=== PATIENT | male | born 1945 | race Caucasian/White ===

== ENCOUNTER 2016-06-25 22:49 | Observation (INO) | payer OTHER, BC ==
[~2016-06-25] VITALS: Ht 188 cm; Wt 127.3 kg
--- NOTE | 2016-06-26 02:41 | ED ORDER SUMMARY ---
..... Patient: CA FITZGERALD OrderSheet [facility] VisitID: [id number] [address] [place] [address] 70y, M Registration Date/Time: 06/25/2016 ORDER SHEET Weight: 122.4 kg (stated) Allergies: Keflex GENERAL ORDERS: Prune Washer (Continuous) (DM with shoulder and neck pain) (23:06 06/25/2016 Anil R.N. verbal order read back to Didier CONNORS) (23:07 JRomanelli R.N.) UA-Culture if indicated Urgent (23:07 06/25/2016 Anil R.N. verbal order read back to Didier CONNORS) (Ack 23:10 LMuller) (0:19 RCollier R.N.) EKG - ER Stat (23:06/25/2016 Anil R.N. verbal order read back to Didier CONNORS) (Ack 23:10 LMuller) (23:10 LMuller) Oxygen (2 L/min) (NC) (23:07 06/25/2016 Anil R.N. verbal order read back to Didier CONNORS) (23:07 omanelli R.N.) Chest 1V Urgent (00:46 06/26/2016 Didier CONNORS) (Ack 0:49 LMuller) (1:14 Katy) CBC w Diff Urgent (00:47 06/26/2016 Didier CONNORS) (Ack 0:49 LMuller) (2:50 RCollier R.N.) CMP Urgent (00:47 06/26/2016 Didier CONNORS) (Ack 0:49 LMuller) (2:50 RCollier R.N.) UA-Culture if indicated Urgent (00:47 06/26/2016 Didier CONNORS) (Ack 0:49 LMuller) (2:50 RCollier R.N.) Amylase Urgent (00:47 06/26/2016 Didier CONNORS) (Ack 0:49 LMuller) (2:50 RCollier R.N.) Lipase Urgent (00:47 06/26/2016 Didier CONNORS) (Ack 0:49 LMuller) (2:50 RCollier R.N.) CPK Urgent (00:47 06/26/2016 Didier CONNORS) (Ack 0:49 LMuller) (2:50 RCollier R.N.) Troponin-I Urgent (00:47 06/26/2016 Didier CONNORS) (Ack 0:49 LMuller) (2:51 RCollier R.N.) BNP Urgent (00:47 06/26/2016 Didier CONNORS) (Ack 0:49 LMuller) (2:51 RCollier R.N.) Pulse oximeter (00:47 06/26/2016 Didier CONNORS) (0:48 RCollier R.N.) Abdomen 1V Upright Urgent (03:14 06/26/2016 Mandoer verbal order read back to Katharine Bui) (Ack 3:17 LMuller) (3:36 [facility]) MEDICATION ORDERS: Phenergan IV 25 mg (HIGH ALERT MEDICATION, NOW) (01:03 06/26/2016 Didier CONNORS) (Ack 1:04 RCollier R.N.) (1:18 IZABELollier R.N.) Aspirin PO 325 mg (NOW) (02:36 06/26/2016 Didier CONNORS) (Ack 2:40 RCollier R.N.) (2:51 RCollier R.N.) IV FLUIDS: IV Saline Lock (23:07 06/25/2016 Anil R.NMarianela verbal order read back to Didier CONNORS) (Ack 23:26 IZABELollier R.N.) (23:33 Anil R.N.) Zofran IV 4 mg (NOW) (23:37 06/25/2016 Anil R.N. verbal order read back to Didier CONNORS) (23:38 Anil R.N.) IV NS : initial bolus 500 mL (1000 mL/hr), then 125 mL/hr for 4h (NOW); Urgent (01:03 06/26/2016 Didier CONNORS) (Ack 1:04 RCollier R.N.) (1:17 RCollier R.N.) ORDER SHEET NOTES: [Electronically signed by Florencia Aguilar R.N. (04:43 06/26/2016)] [Electronically signed by Carl Carrero MD (08:16 06/26/2016)] [Electronically locked/signed by Florencia Aguilar R.N. (04:43 06/26/2016)]
--- NOTE | 2016-06-26 02:41 | ED CLINICAL REPORT ---
Clinical Report - Physicians/Mid Levels [facility] [address] [place] [address] 06/25/2016 22:50 Patient: CA FITZGERALD Time Seen: 23:26. Arrived- By private vehicle. Historian- patient. HISTORY OF PRESENT ILLNESS Chief Complaint: CHILLS and SWEATS. This started at about 8:30 PM. No muscle aches, loss of appetite or fatigue. He has had aching central chest pain. REVIEW OF SYSTEMS The patient has had a subjective fever, chills, chest pain, nausea and neck pain. He has experienced sweats. No abdominal pain, black stools, bloody stools, constipation or diarrhea. He has had moderate vomiting. The vomiting has occurred several times. No coffee-grounds emesis or frankly bloody emesis. All systems otherwise negative, except as recorded above. PAST HISTORY PCP - Aline. Problems: Cellulitis. Abscess. Crohn's Disease. Acid Reflux. Diabetes Mellitus. Hypertension. Hypertension. Additional Surgeries: Bowel Resection. Bowel Surgery. Cholecystectomy. Hernia Repair. Medications: ASA 81 mg, daily. Z85-Yjctev Oral. Boniva Oral. Calcium Ascorbate Oral. Co Q-10 Oral. Colostyrime. Glimepiride Oral. Hydrochlorothiazide Oral. insulin Levomir 24 units BID. Lisinopril Oral. MetFORMIN HCl Oral. Metoprolol 50 mg, 2x a day. Omeprazole Oral. Simvastatin Oral. Allergies: Keflex. Definite Moderate(hives, itching). SOCIAL HISTORY Never smoker. Occasional alcohol use. No drug use. FAMILY HISTORY Denies family medical history. ADDITIONAL NOTES The nursing notes have been reviewed. PHYSICAL EXAM Vital Signs: 06/25/2016 23:08 BP: 205/82. HR: 62. RR: 20. O2 saturation: 98%. Temp: 99.7 F. Pain level now: 2/10. Have been reviewed. Appearance: Alert. Eyes: Pupils equal, round and reactive to light. ENT: Pharynx normal. Neck: Normal inspection. Neck supple. CVS: Normal heart rate and rhythm. Heart sounds normal. Respiratory: No respiratory distress. Breath sounds normal. Abdomen: Soft and nontender. Bowel sounds normal. No organomegaly. No mass. Obese. Back: Normal inspection. Skin: Skin warm and dry. Normal skin color. Normal skin turgor. Extremities: Extremities exhibit normal ROM. No calf tenderness. Extremities nontender. LABS, X-RAYS, AND EKG EKG: Rate: 65. First-degree atrioventricular block. EKG unchanged when compared with prior EKG. (10 Feb 2010). The study has been independently viewed by me. Chest X-ray: No acute disease. Technique: poor inspiration. The X-rays were independently viewed by me. Laboratory Tests: UA-Culture if indicated: (LAITH: 06/26/2016 00:17) ( MsgRcvd 06/26/2016 00:59) Final results Test Result Flag Units (Reference) URINE COLOR YELLOW URINE APPEARANCE CLEAR URINE GLUCOSE TRACE (NEGATIVE) URINE BILIRUBIN NEGATIVE (NEGATIVE) URINE KETONE NEGATIVE (NEGATIVE) URINE SPECIFIC GRAVITY >= 1.030 (1.010-1.030) URINE PH 5.5 (5.0-8.0) URINE PROTEIN 1+ (NEGATIVE) URINE UROBILINOGEN 0.2 EU/dL (0.2-1.0) URINE NITRITE NEGATIVE (NEGATIVE) URINE BLOOD 1+ (NEGATIVE) URINE LEUK ESTERASE NEGATIVE (NEGATIVE) URINE RBC 0-1 rbc/hpf (0-1) URINE WBC 0-1 wbc/hpf (0-1) URINE EPITHELIAL CELLS 0-1 EPI/hpf (0-5) URINE BACTERIA NONE SEEN (NONE SEEN) URINE COMMENT CULT NOT INDICATED URINE CULTURES ARE SET-UP BASED ON THE FOLLOWING CRITERIA:POSITIVE NITRITEPOSITIVE LEUKOCYTE ESTERASEGREATER THAN 10 WHITE BLOOD CELLSMODERATE (2+) OR GREATER BACTERIA CBC w Diff: (LAITH: 06/26/2016 00:01) ( MsgRcvd 06/26/2016 02:08) Final results Test Result Flag Units (Reference) WHITE BLOOD COUNT 2.7 L K/uL (4.5-11.5) RED BLOOD COUNT 3.69 L M/uL (4.50-5.90) HEMOGLOBIN 11.0 L gm/dL (13.5-17.5) HEMATOCRIT 32.5 L % (41.0-53.0) MEAN CELL VOLUME 88 fL (80-100) MEAN CORPUSCULAR HGB 30 pg (26-34) MEAN CORPUSCULAR HGB CONC 34 g/dL (31-37) RED CELL DISTRIBUTION WIDTH 13.2 % (11.6-14.8) PLATELET COUNT 126 L K/uL (150-400) NEUTROPHIL % 88.8 H % (50-75) LYMPH % 9.6 L % (25-40) MONO % 0.3 L % (3-14) EOSINOPHIL % 1.0 % (0-4) BASOPHIL % 0.3 % (0-2) BNP: (LAITH: 06/26/2016 00:01) ( MsgRcvd 06/26/2016 02:24) Final results Test Result Flag Units (Reference) B-TYPE NATRIURETIC PEPTIDE 67.3 pg/ml (5-100) CMP: (LAITH: 06/26/2016 00:01) ( MsgRcvd 06/26/2016 02:19) Final results Test Result Flag Units (Reference) GLUCOSE 175 H mg/dL (70-110) BUN 22 H mg/dL (7-18) CREATININE 1.3 mg/dL (0.6-1.3) Estimated GFR 58.00 mL/min Estimated GFR- >60 mL/min Note: Persistent reduction over 3 months in eGFR<60 mL/min/1.73 m2 defines CKD. Patients with eGFR values>=60 mL/min/1.73 m2 may also have CKD if evidence ofpersistent proteinuria. Additional information may be foundat www.kidney.org. SODIUM 145 mmol/L (136-145) POTASSIUM 4.1 mmol/L (3.5-5.1) CHLORIDE 106 mmol/L (98-107) CARBON DIOXIDE 29 mmol/L (21-32) CALCIUM 8.7 mg/dL (8.5-10.1) TOTAL PROTEIN 6.8 g/dL (6.4-8.2) ALBUMIN 3.4 g/dL (3.3-5.0) BILIRUBIN, TOTAL 0.3 mg/dL (0.0-1.0) ALKALINE PHOSPHATASE 70 U/L (46-116) AST (SGOT) 14 L U/L (15-37) ALT (SGPT) 25 U/L (12-78) LIPASE 106 U/L (73-393) AMYLASE 33 U/L (25-115) CPK 62 U/L (24-260) TROPONIN I <0.05 L ng/mL (0.00-1.5) TROPONIN REFERENCE RANGE:<0.1 NEGATIVE0.1-1.5 INDETERMINANT>1.5 POSITIVE . PROGRESS AND PROCEDURES Course of Care: Patient is stable. Discussed case with hospitalist, (Jeevan). Reviewed test results and need for additional work-up. Agreed upon treatment plan, need for patient follow-up and decision to place in observation. Patient/family counseled. Old medical records reviewed. Disposition: Admitted. Observation. CLINICAL IMPRESSION Chest pain. Abnormal tests: (pancytopenia). (Electronically signed by Carl Carrero MD 06/26/2016 8:16)
--- NOTE | 2016-06-26 02:41 | ED ORDER SUMMARY ---
..... Patient: CA FITZGERALD OrderSheet [facility] VisitID: [id number] [address] [place] [address] 70y, M Registration Date/Time: 06/25/2016 ORDER SHEET Weight: 122.4 kg (stated) Allergies: Keflex GENERAL ORDERS: Behavior Management Specialist (Continuous) (DM with shoulder and neck pain) (23:06 06/25/2016 Anil R.N. verbal order read back to Didier CONNORS) (23:07 JRomanelli R.N.) UA-Culture if indicated Urgent (23:07 06/25/2016 Anil R.N. verbal order read back to Didier CONNORS) (Ack 23:10 LMuller) (0:19 RCollier R.N.) EKG - ER Stat (23:06/25/2016 Anil R.N. verbal order read back to Didier CONNORS) (Ack 23:10 LMuller) (23:10 LMuller) Oxygen (2 L/min) (NC) (23:07 06/25/2016 Anil R.N. verbal order read back to Didier CONNORS) (23:07 omanelli R.N.) Chest 1V Urgent (00:46 06/26/2016 Didier CONNORS) (Ack 0:49 LMuller) (1:14 Kayt) CBC w Diff Urgent (00:47 06/26/2016 Didier CONNORS) (Ack 0:49 LMuller) (2:50 RCollier R.N.) CMP Urgent (00:47 06/26/2016 Didier CONNORS) (Ack 0:49 LMuller) (2:50 RCollier R.N.) UA-Culture if indicated Urgent (00:47 06/26/2016 Didier CONNORS) (Ack 0:49 LMuller) (2:50 RCollier R.N.) Amylase Urgent (00:47 06/26/2016 Didier CONNORS) (Ack 0:49 LMuller) (2:50 RCollier R.N.) Lipase Urgent (00:47 06/26/2016 Didier CONNORS) (Ack 0:49 LMuller) (2:50 RCollier R.N.) CPK Urgent (00:47 06/26/2016 Didier CONNORS) (Ack 0:49 LMuller) (2:50 RCollier R.N.) Troponin-I Urgent (00:47 06/26/2016 Didier CONNORS) (Ack 0:49 LMuller) (2:51 RCollier R.N.) BNP Urgent (00:47 06/26/2016 Didier CONNORS) (Ack 0:49 LMuller) (2:51 RCollier R.N.) Pulse oximeter (00:47 06/26/2016 Didier CONNORS) (0:48 RCollier R.N.) Abdomen 1V Upright Urgent (03:14 06/26/2016 Mandoer verbal order read back to Katharine Bui) (Ack 3:17 LMuller) (3:36 [facility]) MEDICATION ORDERS: Phenergan IV 25 mg (HIGH ALERT MEDICATION, NOW) (01:03 06/26/2016 Didier CONNORS) (Ack 1:04 RCollier R.N.) (1:18 IZABELollier R.N.) Aspirin PO 325 mg (NOW) (02:36 06/26/2016 Didier CONNORS) (Ack 2:40 RCollier R.N.) (2:51 RCollier R.N.) IV FLUIDS: IV Saline Lock (23:07 06/25/2016 Anil R.NMarianela verbal order read back to Didier CONNORS) (Ack 23:26 IZABELollier R.N.) (23:33 Anil R.N.) Zofran IV 4 mg (NOW) (23:37 06/25/2016 Anil R.N. verbal order read back to Didier CONNORS) (23:38 Anil R.N.) IV NS : initial bolus 500 mL (1000 mL/hr), then 125 mL/hr for 4h (NOW); Urgent (01:03 06/26/2016 Didier CONNORS) (Ack 1:04 RCollier R.N.) (1:17 RCollier R.N.) ORDER SHEET NOTES: [Electronically signed by Florencia Aguilar R.N. (04:43 06/26/2016)] [Electronically signed by Carl Carrero MD (08:16 06/26/2016)] [Electronically locked/signed by Florencia Aguilar R.N. (04:43 06/26/2016)]
--- NOTE | 2016-06-26 02:41 | ED NURSING NOTES ---
Clinical Report - Nurses [facility] [address] [place] [address] 06/25/2016 22:50 Patient: CA FITZGERALD TRIAGE Triage time 23:00 Jun 25 2016. Acuity: LEVEL 3. Chief Complaint: CHILLS (Pain in jaw and across his chest, and shakes). Alert. MIGUEL COMA SCORE: Sabine Coma Scale: 15- eyes open spontaneously (4); best verbal response- oriented x 4 (5); best motor response- obeys commands (6). --23:18 Alok Vang R.N. 23:08 06/25/16. BP: 205/82. HR: 62. RR: 20. O2 saturation: 98% on room air. Temp: 99.7 F. Pain level now: 2/10. Additional comments: across the chest and in the jaw. --23:18 Alok Vang R.N. Weight: 122.4 kg stated. Height/Length: 74 inches Per Patient. BMI: 34.7. --23:10 Alok Vang R.N. Medications ASA 81 mg, daily. N50-Qcaxzm Oral. Boniva Oral. Calcium Ascorbate Oral. Co Q-10 Oral. Colostyrime. Glimepiride Oral. Hydrochlorothiazide Oral. insulin Levomir 24 units BID. Lisinopril Oral. MetFORMIN HCl Oral. Metoprolol 50 mg, 2x a day. Omeprazole Oral. Simvastatin Oral. --23:17 Alok Vang R.N. Allergies Keflex. Definite Moderate(hives, itching) --23:17 Alok Vang R.N. History Arrived by private vehicle. Historian: patient. Accompanied by spouse. Primary physician (Aline). ( Chills associated with nausea, aching jaw and shoulders and an aching neck. Bryce fine all day and then started to get the shakes and his pain worsened.). Onset. (about 1 1/2 hours ago). ( Pain in shoulder joints and jaw). Treatment AUCTIONEER ART: None. PAST MEDICAL HX: Immunizations: up-to-date. SOCIAL HX: Never smoker. No alcohol use or drug use. No infectious disease exposure. ABUSE ASSESSMENT: No report of abuse. FALL RISK ASSESSMENT: Fall risk assessment completed. No fall risk identified. NUTRITIONAL RISK ASSESSMENT: The nutritional risk assessment revealed no deficiencies. FUNCTIONAL ASSESSMENT: Functional assessment: no impairments noted. LEARNING NEEDS ASSESSMENT: The learning needs assessment revealed no barriers. SKIN INTEGRITY ASSESSMENT: Skin integrity risk assessment completed. No skin integrity risk identified. --23:18 Alok Vang R.N. PROBLEMS: Cellulitis. Abscess. Crohn's Disease. Acid Reflux. Diabetes Mellitus. Hypertension. --23:14 Alok Vang R.N. ADDITIONAL SURGERIES: Bowel Surgery. Cholecystectomy. Hernia Repair. --23:14 Alok Vang R.N. Bowel Resection. --23:18 Alok Vang R.N. Interventions ID band on patient. To treatment room. --23:18 Alok Vang R.N. PHYSICAL ASSESSMENT To room via wheelchair. GENERAL / NEURO / PSYCH: Alert. Oriented X 4. HEENT: No facial asymmetry noted. Mucous membranes are pink. RESPIRATORY: Respirations not labored. CVS: Normal sinus rhythm noted. Capillary refill less than 2 seconds. Pulses within normal limits. GI / : Abdominal tenderness in the upper abdomen, right upper quadrant, epigastric area and left upper quadrant. SKIN: Skin intact. Skin is warm and dry. Normal skin turgor. --23:19 Alok Vang R.N. NURSING PROGRESS NOTES Oxygen administered by nasal cannula at 2 liters. air sampling and monitoring, pulse oximeter, end tidal CO2 monitor and NIBP monitor placed on patient; telemetry monitor- Lead II and V1; monitor alarms on. Patient gowned. Reassurance given. Patient ready for evaluation- chart flagged and ED physician notified. --23:19 Alok Vang R.N. 23:18 06/25/2016 Site #1 started via IV in the left antecubital space with an 20g angiocath, with aseptic technique and good blood return; one attempt. Blood drawn: rainbow set. Labeled in the presence of the patient and sent to the lab. Saline lock flushed with 10 mL saline. --23:33 Alok Vang R.N. 23:28 06/25/2016 Zofran (Ondansetron HCl) IVP 4 mg given over 2 minute(s) via site #1. Allergies verified and confirmed 5 rights. IV patency established. IV site checked: no pain, redness, or swelling. IV flushed thoroughly pre- and post-medication administration. IVP given by RN. --23:38 Alok Vang R.N. EKG time: (7874). EKG was performed by a tech and shown to the ED physician. --00:03 Zeina Villalba ER Tech1 ( pt repositioned in bed.). --00:18 Florencia Aguilar R.N. Patient ID band checked for patient name and birthdate: patient confirmed urine collected with return of yellow-colored clear urine; sample sent to lab. Specimen labeled in the presence of the patient. --00:18 Florencia Aguilar R.N. ( pt still vomiting after Zofran. at bedside, assisting with pt clean up.). --00:21 Florencia Aguilar R.N. GI / : The patient reports nausea. SKIN: Slightly pallid. --00:21 Florencia Aguilar R.N. 00:25 06/26/16. BP: 200/77. HR: 87. RR: 16. O2 saturation: 97% on room air. Bennett-Saucedo pain scale: 4/10. --00:26 Florencia Aguilar R.N. 01:15 06/26/2016 Started bag #1 1000 mL IV Fluids IV NS (Saline); bolus of 500 mL over 30 minute(s) then at 125 mL/hr via site #1 via IV pump. Allergies verified and confirmed 5 rights. IV patency established. IV site checked: no pain, redness, or swelling. IV flushed thoroughly pre- and post-medication administration. --01:17 Florencia Aguilar R.N. 01:16 06/26/2016 PHENERGAN (Promethazine HCl) IVP 25 mg given over 90 second(s) via site #1. Allergies verified and confirmed 5 rights. IV patency established. IV site checked: no pain, redness, or swelling. IV flushed thoroughly pre- and post-medication administration. IVP given by RN. --01:18 Florencia Aguilar R.N. 01:18 06/26/16. BP: 154/73. HR: 93. RR: 16. O2 saturation: 93% on nasal cannula at 2 liters/minute. --01:19 Florencia Aguilar R.N. 02:50 06/26/2016 Aspirin PO Tablets 325 mg given. Allergies verified and confirmed 5 rights. --02:51 Florencia Aguilar R.N. ( assisted pt to reposition in bed.). --02:52 Florencia Aguilar R.N. ( Dr Chew at bedside.). --02:52 Florencia Aguilar R.N. ( 2 person assist to reposition pt in bed.). --03:11 Florencia Aguilar R.N. 03:11 06/26/16. BP: 135/72. HR: 85. RR: 15. O2 saturation: 94% on nasal cannula at 2 liters/minute. Temp: 99.3 F (oral). --03:13 Florencia Aguilar R.N. 04:25 06/26/2016 Site #[address] upon admission. Flushed with 10 mL saline; flushes easily. --04:43 Florencia Aguilar R.N. 04:25 06/26/2016 IV Fluids IV NS Discontinued: bag #1 STOPPED. Total amount infused: 700 mL. IV patency established. IV site checked: no pain, redness, or swelling. IV flushed thoroughly. --04:42 Florencia Aguilar R.N. DISPOSITION / DISCHARGE Report was given to a nurse via a phone call. Report included patient's care, treatment, medications, reviewed medication reconcilliation, and condition (including any recent changes or anticipated changes). All questions were answered. Report was acknowledged and care was transferred. --04:19 Florencia Aguilar R.N. 04:19 06/26/16. BP: 99/58. HR: 78. RR: 15. O2 saturation: 94% on nasal cannula at 2 liters/minute. Temp: 99.5 F (oral). Bennett-Saucedo pain scale: 10. --04:23 Florencia Aguilar R.N. Patient's personal items include, clothing ( took home car keys from pocket of jestaci); items were placed in belongings bag and transported with the patient. Collection of belongings was witnessed by 1 nurse. --04:24 Florencia Aguilar R.N. Transported via stretcher by nurse with IV. --04:43 Florencia Aguilar R.N. Locked/Released at 06/26/2016 4:43 by Florencia Aguilar R.N.
--- NOTE | 2016-06-26 02:41 | ED NURSING NOTES ---
Clinical Report - Nurses [facility] [address] [place] [address] 06/25/2016 22:50 Patient: CA FITZGERALD TRIAGE Triage time 23:00 Jun 25 2016. Acuity: LEVEL 3. Chief Complaint: CHILLS (Pain in jaw and across his chest, and shakes). Alert. MIGUEL COMA SCORE: [place] Coma Scale: 15- eyes open spontaneously (4); best verbal response- oriented x 4 (5); best motor response- obeys commands (6). --23:18 Alok Vang R.N. 23:08 06/25/16. BP: 205/82. HR: 62. RR: 20. O2 saturation: 98% on room air. Temp: 99.7 F. Pain level now: 2/10. Additional comments: across the chest and in the jaw. --23:18 Alok Vang R.N. Weight: 122.4 kg stated. Height/Length: 74 inches Per Patient. BMI: 34.7. --23:10 Alok Vang R.N. Medications ASA 81 mg, daily. E74-[id number] Oral. Boniva Oral. Calcium Ascorbate Oral. Co Q-10 Oral. Colostyrime. Glimepiride Oral. Hydrochlorothiazide Oral. insulin Levomir 24 units BID. Lisinopril Oral. MetFORMIN HCl Oral. Metoprolol 50 mg, 2x a day. Omeprazole Oral. Simvastatin Oral. --23:17 Alok Vang R.N. Allergies Keflex. Definite Moderate(hives, itching) --23:17 Alok Vang R.N. History Arrived by private vehicle. Historian: patient. Accompanied by spouse. Primary physician (Aline). ( Chills associated with nausea, aching jaw and shoulders and an aching neck. [place] fine all day and then started to get the shakes and his pain worsened.). Onset. (about 1 1/2 hours ago). ( Pain in shoulder joints and jaw). Treatment CAR STOWER: None. PAST MEDICAL HX: Immunizations: up-to-date. SOCIAL HX: Never smoker. No alcohol use or drug use. No infectious disease exposure. ABUSE ASSESSMENT: No report of abuse. FALL RISK ASSESSMENT: Fall risk assessment completed. No fall risk identified. NUTRITIONAL RISK ASSESSMENT: The nutritional risk assessment revealed no deficiencies. FUNCTIONAL ASSESSMENT: Functional assessment: no impairments noted. LEARNING NEEDS ASSESSMENT: The learning needs assessment revealed no barriers. SKIN INTEGRITY ASSESSMENT: Skin integrity risk assessment completed. No skin integrity risk identified. --23:18 Alok Vang R.N. PROBLEMS: Cellulitis. Abscess. Crohn's Disease. Acid Reflux. Diabetes Mellitus. Hypertension. --23:14 Alok Vang R.N. ADDITIONAL SURGERIES: Bowel Surgery. Cholecystectomy. Hernia Repair. --23:14 Alok Vang R.N. Bowel Resection. --23:18 Alok Vang R.N. Interventions ID band on patient. To treatment room. --23:18 Alok Vang R.N. PHYSICAL ASSESSMENT To room via wheelchair. GENERAL / NEURO / PSYCH: Alert. Oriented X 4. HEENT: No facial asymmetry noted. Mucous membranes are pink. RESPIRATORY: Respirations not labored. CVS: Normal sinus rhythm noted. Capillary refill less than 2 seconds. Pulses within normal limits. GI / : Abdominal tenderness in the upper abdomen, right upper quadrant, epigastric area and left upper quadrant. SKIN: Skin intact. Skin is warm and dry. Normal skin turgor. --23:19 Alok Vang R.N. NURSING PROGRESS NOTES Oxygen administered by nasal cannula at 2 liters. account solutions analyst, pulse oximeter, end tidal CO2 monitor and NIBP monitor placed on patient; animal control officer- Lead II and V1; monitor alarms on. Patient gowned. Reassurance given. Patient ready for evaluation- chart flagged and ED physician notified. --23:19 Alok Vang R.N. 23:18 06/25/2016 Site #1 started via IV in the left antecubital space with an 20g angiocath, with aseptic technique and good blood return; one attempt. Blood drawn: rainbow set. Labeled in the presence of the patient and sent to the lab. Saline lock flushed with 10 mL saline. --23:33 Alok Vang R.N. 23:28 06/25/2016 Zofran (Ondansetron HCl) IVP 4 mg given over 2 minute(s) via site #1. Allergies verified and confirmed 5 rights. IV patency established. IV site checked: no pain, redness, or swelling. IV flushed thoroughly pre- and post-medication administration. IVP given by RN. --23:38 Alok Vang R.N. EKG time: (4914). EKG was performed by a tech and shown to the ED physician. --00:03 Zeina Villalba ER Tech1 ( pt repositioned in bed.). --00:18 Florencia Aguilar R.N. Patient ID band checked for patient name and birthdate: patient confirmed urine collected with return of yellow-colored clear urine; sample sent to lab. Specimen labeled in the presence of the patient. --00:18 Florencia Aguilar R.N. ( pt still vomiting after Zofran. at bedside, assisting with pt clean up.). --00:21 Florencia Aguilar R.N. GI / : The patient reports nausea. SKIN: Slightly pallid. --00:21 Florencia Aguilar R.N. 00:25 06/26/16. BP: 200/77. HR: 87. RR: 16. O2 saturation: 97% on room air. Bennett-Saucedo pain scale: 4/10. --00:26 Florencia Aguilar R.N. 01:15 06/26/2016 Started bag #1 1000 mL IV Fluids IV NS (Saline); bolus of 500 mL over 30 minute(s) then at 125 mL/hr via site #1 via IV pump. Allergies verified and confirmed 5 rights. IV patency established. IV site checked: no pain, redness, or swelling. IV flushed thoroughly pre- and post-medication administration. --01:17 Florencia Aguilar R.N. 01:16 06/26/2016 PHENERGAN (Promethazine HCl) IVP 25 mg given over 90 second(s) via site #1. Allergies verified and confirmed 5 rights. IV patency established. IV site checked: no pain, redness, or swelling. IV flushed thoroughly pre- and post-medication administration. IVP given by RN. --01:18 Florencia Aguilar R.N. 01:18 06/26/16. BP: 154/73. HR: 93. RR: 16. O2 saturation: 93% on nasal cannula at 2 liters/minute. --01:19 Florencia Aguilar R.N. 02:50 06/26/2016 Aspirin PO Tablets 325 mg given. Allergies verified and confirmed 5 rights. --02:51 Florencia Aguilar R.N. ( assisted pt to reposition in bed.). --02:52 Florencia Aguilar R.N. ( Dr Chew at bedside.). --02:52 Florencia Aguilar R.N. ( 2 person assist to reposition pt in bed.). --03:11 Florencia Aguilar R.N. 03:11 06/26/16. BP: 135/72. HR: 85. RR: 15. O2 saturation: 94% on nasal cannula at 2 liters/minute. Temp: 99.3 F (oral). --03:13 Florencia Aguilar R.N. 04:25 06/26/2016 Site #[address] upon admission. Flushed with 10 mL saline; flushes easily. --04:43 Florencia Aguilar R.N. 04:25 06/26/2016 IV Fluids IV NS Discontinued: bag #1 STOPPED. Total amount infused: 700 mL. IV patency established. IV site checked: no pain, redness, or swelling. IV flushed thoroughly. --04:42 Florencia Aguilar R.N. DISPOSITION / DISCHARGE Report was given to a nurse via a phone call. Report included patient's care, treatment, medications, reviewed medication reconcilliation, and condition (including any recent changes or anticipated changes). All questions were answered. Report was acknowledged and care was transferred. --04:19 Florencia Aguilar R.N. 04:19 06/26/16. BP: 99/58. HR: 78. RR: 15. O2 saturation: 94% on nasal cannula at 2 liters/minute. Temp: 99.5 F (oral). Bennett-Saucedo pain scale: 10. --04:23 Florencia Aguilar R.N. Patient's personal items include, clothing ( took home car keys from pocket of jestaci); items were placed in belongings bag and transported with the patient. Collection of belongings was witnessed by 1 nurse. --04:24 Florencia Aguilar R.N. Transported via stretcher by nurse with IV. --04:43 Florencia Aguilar R.N. Locked/Released at 06/26/2016 4:43 by Florencia Aguilar R.N.
--- NOTE | 2016-06-26 03:08 | Progress Note ---
Subjective General Full note dictated: 70 y.o male with hx of crohns, DM, HTN, high chol who presented to the ER with CP and shoulder pain 5:30pm lasted around 1/2 hr and went to ther ER then started vomiting; given anti emetics and has been confused since. Hx of w/u that showed pancytopenia. Plan: admit r/o IA; check on abdominal films. ISS, home meds.
--- NOTE | 2016-06-26 03:08 | Progress Note ---
Subjective General Full note dictated: 70 y.o male with hx of crohns, DM, HTN, high chol who presented to the ER with CP and shoulder pain 5:30pm lasted around 1/2 hr and went to ther ER then started vomiting; given anti emetics and has been confused since. Hx of w/u that showed pancytopenia. Plan: admit r/o CT; check on abdominal films. ISS, home meds.
[2016-06-26 04:50] VITALS: BP 136/58
--- NOTE | 2016-06-26 05:28 | DIAGNOSTIC IMAGING REPORT ---
PROCEDURE: XR CHEST 1 VIEW INDICATION: PAIN TECHNIQUE: Portable AP view (0115 hours). COMPARISON: Compared to chest x-ray and 11/29/2008. FINDINGS: Allowing for suboptimal inspiration, lungs are clear. Heart and mediastinum are normal. Thorax is normal. IMPRESSION: 1. Negative chest.
--- NOTE | 2016-06-26 05:34 | DIAGNOSTIC IMAGING REPORT ---
PROCEDURE: XR ABDOMEN 1 VIEW UPRIGHT INDICATION: Vomiting. History of Crohn disease. TECHNIQUE: AP upright view. COMPARISON: Compared to CT abdomen pelvis on 02/09/2010 and 11/29/2008. FINDINGS: There is a relative paucity of small bowel gas with a few air-fluid levels and transverse colon. No evidence of free air. Status post cholecystectomy (surgical clips). Mild to moderate degenerative change of the lumbar spine. IMPRESSION: 1. There is a relative paucity of small bowel gas with a fluid levels in the transverse colon. While findings are nonspecific, one might consider enterocolitis, ileus, or obstruction (with increased fluid in the small bowel). 2. Status post cholecystectomy (surgical clips).
--- NOTE | 2016-06-26 05:53 | NUR ---
Pt. arrived to floor at approximately 0450, at bedside. Pt. drowsy and oriented to place and self, but forgetful to why he is in the hospital. Pt. stated that he was confused in the ER and became a bit more confused after they administered phenergan. Pt. is not confused per baseline, "only when drowsy" per pt. . Pt. is resting at this time. Denies chest pain, or SOB. 2 L 02 per nasal cannula at this time. Call light within reach. Bed alarm on due to confusion. Pt. is on telemetry, sinus rhythm with 1st degree AV block. WCTM.
--- NOTE | 2016-06-26 06:35 | NUR ---
BG 153 AT THIS TIME.
--- NOTE | 2016-06-26 06:51 | HISTORY AND PHYSICAL ---
ADMITTED: 06/26/2016 CHIEF COMPLAINT: 1. Chest pain 2. Left shoulder pain 3. Jaw pain 4. Abnormal labs 5. Nausea and vomiting HISTORY OF PRESENT ILLNESS: The patient was at home with his this evening, he started having some discomfort that his says his story has been changing and he has been really confused since he has been here, but some time, between 530 and 8:30 p.m., he started having some discomfort in his upper chest, possibly down into his shoulders, unable to clarify which side. Then he came into the emergency department as he was looking very pale and weak. In the emergency department, he started having significant vomiting and after vomiting multiple times, he was given some Zofran and then Phenergan and he started becoming extremely confused per his and is currently now not thinking like his normal self and is not acting like his normal self either. MEDICAL/SURGICAL HISTORY: Past medical history: He has had hypertension, acid reflux, Crohn's, diabetes, fatty liver, atrial fibrillation in the past, anemia. Past surgical history, he has had a cholecystectomy, inguinal hernia, hydrocele, colectomy in 1999 and vasectomy. MEDICATIONS: 1. Metformin, states 1000 mg once a day. 2. Glimepiride 4 mg p.o. b.i.d. 3. Cholestyramine 1 scoop b.i.d. 4. Pentaza 500 mg 2 p.o. q.i.d. 5. Lisinopril 40 mg p.o. daily. 6. Metoprolol 200 mg b.i.d. 7. Aspirin 81 mg daily. 8. Hydrochlorothiazide 25 mg p.o. daily. 9. Omeprazole 20 mg p.o. daily. 10. Simvastatin 30 mg p.o. daily. ALLERGIES: 1. CEPHALEXIN. 2. HISTORY OF MAYBE ZYLOPRIM. SOCIAL HISTORY: , doesn't smoke drink or drug. FAMILY HISTORY: Positive for gallbladder disease and heart disease in a brother. CODE STATUS: HE SAYS DO NOT RESUSCITATE/DO NOT INTUBATE. HIS SAYS THAT HE IS TOO CONFUSED AT THIS TIME AND THAT THEY WERE WORKING ON PAPERWORK. REVIEW OF SYSTEMS: Notable for the positive vomiting as well as the chest and shoulder discomfort. He had a history of Crohn's disease. He denies any bleeding from any orifice. He has got this new confusion after medications in the emergency department and is coloring is looking better at this time. He denies any active diarrhea. He also denies any fevers, though he did have some sweats with this. PHYSICAL EXAMINATION: GENERAL: He is a confused male who has a hard time maintaining a linear conversation. VITAL SIGNS: Blood pressure initially was elevated in the 205/82 range though this has dropped down into the 154/73, heart rate of 93, respirations 16, and saturating 93% on 2 liters. HEENT: Extraocular movements intact. Pupils equal, round, and reactive to light. Oropharynx is clear with moist mucous membranes. NECK: Supple without lymphadenopathy. LUNGS: Clear to auscultation bilaterally. HEART: Regular rate and rhythm. ABDOMEN: Soft, obese, nontender. GENITOURINARY: Deferred. RECTAL: Deferred. NEUROLOGIC: Cranial nerves II-XII intact. Strength and sensation grossly intact. He is confused. LAB/IMAGING: EKG shows heart rate of 65 with first-degree block and no changes from previous one done in 02/2010. Chest x-ray shows poor inspiration and an abdominal upright film is pending at this time that I have ordered. Urine specific gravity of 1030 , negative nitrite, negative leukocyte esterase. White count of 2.7, hematocrit of 32.5, platelets of 126. BNP 67, glucose 175, BUN of 22, creatinine 1.3, sodium 145, potassium 4.1, chloride of 106, HCO3 29, calcium 8.7, total protein 6.8, albumin 3.4, total bilirubin 0.3, alkaline phosphatase 70, AST 14, ALT 25, lipase 106, amylase 33. CPK 62. Troponin I less than 0.05. IMPRESSION: 1. This is a 70-year-old male who is being admitted for chest pain, rule out myocardial infarction. He has baseline diabetes. He has new mild pancytopenia. He has a history of Crohn's and is actively vomiting. He has got confusion after having antinausea medications. PLAN: 1. Make him n.p.o. at this time. 2. Upright abdominal x-ray to rule out obstruction. 3. Monitor his labs, including his pancytopenia and his vitals. 4. IV fluids at this time. 5. Resume his home medications for the most part for his elevated blood pressure, but also will give him insulin sliding scale. 6. CODE STATUS WILL RECONFIRMED WITH HIM ONCE HE IS CLEAR. AT THIS POINT, UNDER HIS 'S WISHES, WE WILL KEEP A FULL CODE.
[2016-06-26 06:58] VITALS: BP 140/52
--- NOTE | 2016-06-26 07:31 | Progress Note ---
Subjective General Note Date: June 26, 2016 Admission Date: June 26, 2016 Hospital Day: 1 PCP: Jeremy Mireles M.D. Status: Observation Advanced Directive: NO CODE Room: 203-B Brief History: The patient is a 70-year-old white male with a significant past medical history of hypertension, gastroesophageal reflux, Crohn's disease, diabetes mellitus, atrial fibrillation, anemia, who presented to [facility] emergency department on the day of admission secondary to complaints of chest pain shoulder pain with associated nausea and vomiting. [facility] ER evaluation was consistent with chest pain rule out ACS. Secondary to the above, the patient was admitted by Meir Chew M.D. for further evaluation and treatment. For other history present illness, past medical history, family history, social history, review of systems, and admission physical examination please see the patient's history and physical examination and ER visit note in the patient's medical record. Subjective: The patient sstates he is doing better today. Mild nausea but no vomiting. No abdominal pain. Complains of headache. No chest pain. Patient requests: Tums for indigestion Medications and Allergies Medications Current Medications Sig/Sheila Start time Last Medication Dose Route Stop Time Status Admin Patient Own See Dose QID 06/26 1200 AC Medication Insts (1) PO Cholesterol 4 GM BID 06/26 899 AC PO Hydrochlorothiazide 25 MG DAILY 06/26 09 AC PO Lisinopril 40 MG DAILY 06/26 899 AC PO Metoprolol Tartrate 200 MG BID 06/26 0900 AC PO Insulin Human Lispro See Dose ACHS 06/26 0730 AC Insts (2) SC Acetaminophen 650 MG Q6H PRN 06/26 0315 AC PO Al Hydrox/Mg Hydrox/ 15 ML Q1H PRN 06/26 0315 AC Simethicone PO Atropine Sulfate 0.5 MG Q3MIN PRN 06/26 0315 AC IV Lidocaine HCl See Dose ONCE PRN 06/26 031 AC Insts (3) IV Magnesium Hydroxide 10 ML DAILY PRN 06/26 0315 AC PO Morphine Sulfate 2 MG Q3M PRN 06/26 031 AC IV Nitroglycerin 0.4 MG Q5M PRN 06/26 031 AC SL Sodium Chloride 1,000 ML ASDIRECTED 06/26 031 AC 06/26 IV 0631 Dose Instructions: (1)Patient Own Medication: (PENTASA 1000MG TAB (2)Insulin Human Lispro: MEDIUM DOSE SLIDING SCALE (3)Lidocaine HCl: 1.5 MG/KG Allergies Coded Allergies: Cephalexin (Severe, Anaphylaxis 02/09/10) Lactose Intolerance (02/09/10) Physical Exam Vital Signs / I&Os Vital Signs Date Time Temp Pulse Resp B/P Pulse O2 O2 Flow FiO2 Ox Delivery Rate 06/26 0658 98.4 85 18 140/52 99 Nasal 2.0 Cannula 06/26 0450 98.2 81 18 136/58 97 Nasal 2.0 Cannula General Appearance Alert, Oriented X3, Cooperative, No acute distress Lungs Clear to auscultation, Normal air movement Cardiovascular Regular rate and rhythm, Normal S1 and S2 Abdomen Normal bowel sounds, Soft, No tenderness Extremities No cyanosis, No clubbing, No edema Neurological Cranial nerves intact, Strength 5/5 x4 ext's, No lateralizing signs Psych/Mental Status Mental status normal, Mood normal LAB Results Laboratory Tests 06/26 06/26 06/26 0017 0001 0001 Chemistry Plasma Sodium (136 - 145 mmol/L) 145 Plasma Potassium (3.5 - 5.1 mmol/L) 4.1 Plasma Chloride (98 - 107 mmol/L) 106 CO2 (Enzymatic) (21 - 32 mmol/L) 29 BUN (7 - 18 mg/dL) 22 Creatinine (0.6 - 1.3 mg/dL) 1.3 Est GFR ( Amer) (mL/min) >60 Est GFR (Non-Af Amer) (mL/min) 58.00 Glucose (70 - 110 mg/dL) 175 Plasma Calcium (8.5 - 10.1 mg/dL) 8.7 Total Bilirubin (0.0 - 1.0 mg/dL) 0.3 AST (15 - 37 U/L) 14 ALT (12 - 78 U/L) 25 Alkaline Phosphatase (46 - 116 U/L) 70 Creatine Kinase (24 - 260 U/L) 62 Troponin (0.00 - 1.5 ng/mL) <0.05 B-Natriuretic Peptide (5 - 100 pg/ml) 67.3 Total Protein (6.4 - 8.2 g/dL) 6.8 Albumin (3.3 - 5.0 g/dL) 3.4 Amylase (25 - 115 U/L) 33 Lipase (73 - 393 U/L) 106 Hematology WBC (4.5 - 11.5 K/uL) 2.7 RBC (4.50 - 5.90 M/uL) 3.69 Hgb (13.5 - 17.5 gm/dL) 11.0 Hct (41.0 - 53.0 %) 32.5 MCV (80 - 100 fL) 88 MCH (26 - 34 pg) 30 RDW (11.6 - 14.8 %) 13.2 Neut % (Auto) (50 - 75 %) 88.8 Lymph % (Auto) (25 - 40 %) 9.6 [place] % (Auto) (3 - 14 %) 0.3 Eos % (Auto) (0 - 4 %) 1.0 Baso % (Auto) (0 - 2 %) 0.3 Plt Count, EDTA (150 - 400 K/uL) 126 PUBS MCHC (31 - 37 g/dL) 34 Urines Urine Color YELLOW Urine Appearance CLEAR Urine pH (5.0 - 8.0) 5.5 Ur Specific [place] (1.010 - 1.030) >= 1.030 Urine Protein (NEGATIVE) 1+ Urine Ketones (NEGATIVE) NEGATIVE Urine Blood (NEGATIVE) 1+ Urine Nitrite (NEGATIVE) NEGATIVE Urine Bilirubin (NEGATIVE) NEGATIVE Urine Urobilinogen (0.2 - 1.0 EU/dL) 0.2 Ur Leukocyte Esterase (NEGATIVE) NEGATIVE Urine RBC (0 - 1 rbc/hpf) 0-1 Urine WBC (0 - 1 wbc/hpf) 0-1 Ur Epithelial Cells (0 - 5 EPI/hpf) 0-1 Urine Bacteria (NONE SEEN) NONE SEEN Urine Glucose (NEGATIVE) TRACE Urine Comment CULT NOT INDICATED Imaging Chest X-Ray IMPRESSION: 1. Negative chest. Dictated by: HENRI ODOM MD D: EASTON;06/26/16 0527 Abdominal X-Ray IMPRESSION: 1. There is a relative paucity of small bowel gas with a fluid levels in the transverse colon. While findings are nonspecific, one might consider enterocolitis, ileus, or obstruction (with increased fluid in the small bowel). 2. Status post cholecystectomy (surgical clips). Dictated by: HENRI ODOM MD D: EASTON;06/26/16 8739 Assessment and Plan Problem List 1. Chest pain Plan -patient with history of chest pain -Chest pain resolved -Troponin negative -EKG with no acute ST-T wave tidwell -Patient will undergo Lexiscan-Cardiolite stress test -Continue present therapy -Check lipid profile in a.m. 2. Pancytopenia Plan -patient with mild pancytopenia -Review previous records -Monitor 3. Vomiting Plan -patient with history of emesis prior to admission -This has resolved -Patient has tolerated clear liquid diet -Monitor, questionable mild degree of gastroenteritis 4. Diabetes mellitus Status Chronic Onset Date Unknown Plan -patient with history of diabetes mellitus -Check hemoglobin A1c in a.m. -continue present therapy -Before meals and at bedtime blood glucose with insulin sliding scal 5. Hypertension Status Chronic Onset Date Unknown Plan -adequate control. -Continue present therapy -Monitor Current status: Fair, improved Anticipated discharge date: Anticipated discharge in 1 day Anticipated discharge placement: Home Patient care time: Time spent in chart review, patient interview, physical exam, CPOE, and care documentation: 25 minutes Visit to patient today: 3 Complexity of care: Moderate E&M Codes Rounding: Inpt-Moderate/[id number]
--- NOTE | 2016-06-26 07:44 | NUR ---
PATIENT RESTING IN BED. DENIES CHEST PRESSURE AT THIS TIME. A AND O X 4 WITH NO SX OF CONFUSION. STATES SLIGHT NAUSEA BUT NO EMESIS. MD STATES OK TO TAKE MEDS WITH SIPS OF WATER AND TO REMAIN ON MED DOSE SLIDING SCALE WHILE NPO. WILL OBTAIN MED REC FROM WHEN SHE RETURNS THIS AM. SEE SHIFT ASSESSMENT FOR FURTHER DETAILS.
--- NOTE | 2016-06-26 08:16 | ED MAR SUMMARY ---
..... Medication Administration Record [facility] [address] [place] [address] Patient: CA FITZGERALD Visit ID: [id number] 70y, M Weight: 122.4 kg Height/Length: 74 in BMI: 34.7 ALLERGIES: Keflex Given 23:28 06/25/2016 Alok Vang R.N. Medication Administered: ZOFRAN [IVP] (ONDANSETRON HCL), Dose: 4 mg IVP over 2 minute(s), Site: #1 left AC. Medication Ordered: Zofran IV 4 mg (NOW). Start 01:15 06/26/2016 Florencia Aguilar R.N., Stop 04:25 06/26/2016 Florencia Aguilar R.N. Medication Administered: IV NS (SALINE), Dose: IV Fluids, Rate: 125 mL/hr, Bolus: 500 mL over 30 minute(s), Dispensed: 1000 mL bag, Site: #1 left AC. Medication Ordered: IV NS : initial bolus 500 mL (1000 mL/hr), then 125 mL/hr for 4h (NOW); Urgent. Given 01:16 06/26/2016 Florencia Aguilar R.N. Medication Administered: PHENERGAN [IVP] (PROMETHAZINE HCL), Dose: 25 mg IVP over 90 second(s), Site: #1 left AC. Medication Ordered: Phenergan IV 25 mg (HIGH ALERT MEDICATION, NOW). Given 02:50 06/26/2016 Florencia Aguilar R.N. Medication Administered: ASPIRIN [PO], Dose: 325 mg Tablets PO. Medication Ordered: Aspirin PO 325 mg (NOW).
--- NOTE | 2016-06-26 08:16 | ED DISCHARGE INSTRUCTIONS ---
Patient: CA FITZGERALD General Instructions [facility] VisitID: [id number] [address] [place] [address] 70y, M Registration Date/Time: 06/25/2016 Chest pain. Abnormal tests: (pancytopenia). ADDITIONAL INFORMATION Chest Pain, Uncertain Cause Chest pain can happen for a number of reasons. Sometimes the cause can not be determined. If yourcondition does not seem serious, and your pain does not appear to be coming from your heart, your doctor may recommend watching it closely. Sometimes the signs of a serious problem take more time to appear. Therefore, watch for the warning signs listed below. Home care After your visit, follow these recommendations: Rest today and avoid strenuous activity. Take any prescribed medicine as directed. Follow-up care Follow up with your doctor or this facility as instructed or if you do not start to feel better within 24 hours. Call 911 Get immediate medical attention if any of the following occur: A change in the type of pain: if it feels different, becomes more severe, lasts longer, or begins to spread into your shoulder, arm, neck, jaw or back Shortness of breath or increased pain with breathing Weakness, dizziness, or fainting Rapid heart beat Get prompt medical attention Call your doctor right away if any of the following occur: Cough with dark colored sputum (phlegm) or blood Fever of 100.4F(38C) or higher, or as directed by your health care provider Swelling, pain or redness in one leg You have been given the following additional information: Chest Pain, Uncertain Cause (Electronically signed by Carl Carrero MD 06/26/2016 8:16)
--- NOTE | 2016-06-26 08:16 | ED MED RECONCILIATION SUMMARY ---
Patient: CA FITZGERALD Medication Reconciliation Report [facility] VisitID: [id number] [address] [place] [address] 70y, M Registration Date/Time: 06/25/2016 Weight: 122.4 kg Height/Length: 74 in. BMI: 34.7 ALLERGIES: Keflex The patient's Home Medications are listed below: THE FOLLOWING MEDICATIONS NEED TO BE RECONCILED: ASA 81 mg, daily [id number] Oral Boniva Oral Calcium Ascorbate Oral Co Q-10 Oral Colostyrime Glimepiride Oral Hydrochlorothiazide Oral insulin Levomir 24 units BID Lisinopril Oral MetFORMIN HCl Oral Metoprolol 50 mg, 2x a day Omeprazole Oral Simvastatin Oral The source(s) of the original Home Medication information: Not obtained. The following Medications were given to the patient in the Emergency Department: Zofran [IVP] IVP 4 mg, administered: 06/25/2016 11:28:00 PM IV NS IV Fluids bolus 500 mL over 30 minute(s), then 125 mL/hr, administered: 06/26/2016 1:15:00 AM PHENERGAN [IVP] IVP 25 mg, administered: 06/26/2016 1:16:00 AM Aspirin [PO] PO 325 mg, administered: 06/26/2016 2:50:00 AM The following Medications were prescribed to the patient: None.
--- NOTE | 2016-06-26 08:16 | ED MAR SUMMARY ---
..... Medication Administration Record [address] [place] [place] [address] Patient: CA FITZGERALD Visit ID: [id number] 70y, M Weight: 122.4 kg Height/Length: 74 in BMI: 34.7 ALLERGIES: Keflex Given 23:28 06/25/2016 Alok Vang R.N. Medication Administered: ZOFRAN [IVP] (ONDANSETRON HCL), Dose: 4 mg IVP over 2 minute(s), Site: #1 left AC. Medication Ordered: Zofran IV 4 mg (NOW). Start 01:15 06/26/2016 Florencia Aguilar R.N., Stop 04:25 06/26/2016 Florencia Aguilar R.N. Medication Administered: IV NS (SALINE), Dose: IV Fluids, Rate: 125 mL/hr, Bolus: 500 mL over 30 minute(s), Dispensed: 1000 mL bag, Site: #1 left AC. Medication Ordered: IV NS : initial bolus 500 mL (1000 mL/hr), then 125 mL/hr for 4h (NOW); Urgent. Given 01:16 06/26/2016 Florencia Aguilar R.N. Medication Administered: PHENERGAN [IVP] (PROMETHAZINE HCL), Dose: 25 mg IVP over 90 second(s), Site: #1 left AC. Medication Ordered: Phenergan IV 25 mg (HIGH ALERT MEDICATION, NOW). Given 02:50 06/26/2016 Florencia Aguilar R.N. Medication Administered: ASPIRIN [PO], Dose: 325 mg Tablets PO. Medication Ordered: Aspirin PO 325 mg (NOW).
--- NOTE | 2016-06-26 08:16 | ED DISCHARGE INSTRUCTIONS ---
Patient: CA FITZGERALD General Instructions [facility] VisitID: [id number] [address] [place] [address] 70y, M Registration Date/Time: 06/25/2016 Chest pain. Abnormal tests: (pancytopenia). ADDITIONAL INFORMATION Chest Pain, Uncertain Cause Chest pain can happen for a number of reasons. Sometimes the cause can not be determined. If yourcondition does not seem serious, and your pain does not appear to be coming from your heart, your doctor may recommend watching it closely. Sometimes the signs of a serious problem take more time to appear. Therefore, watch for the warning signs listed below. Home care After your visit, follow these recommendations: Rest today and avoid strenuous activity. Take any prescribed medicine as directed. Follow-up care Follow up with your doctor or this facility as instructed or if you do not start to feel better within 24 hours. Call 911 Get immediate medical attention if any of the following occur: A change in the type of pain: if it feels different, becomes more severe, lasts longer, or begins to spread into your shoulder, arm, neck, jaw or back Shortness of breath or increased pain with breathing Weakness, dizziness, or fainting Rapid heart beat Get prompt medical attention Call your doctor right away if any of the following occur: Cough with dark colored sputum (phlegm) or blood Fever of 100.4F(38C) or higher, or as directed by your health care provider Swelling, pain or redness in one leg You have been given the following additional information: Chest Pain, Uncertain Cause (Electronically signed by Carl Carrero MD 06/26/2016 8:16)
--- NOTE | 2016-06-26 08:16 | ED MED RECONCILIATION SUMMARY ---
Patient: CA FITZGERALD Medication Reconciliation Report [facility] VisitID: [id number] [address] [place] [address] 70y, M Registration Date/Time: 06/25/2016 Weight: 122.4 kg Height/Length: 74 in. BMI: 34.7 ALLERGIES: Keflex The patient's Home Medications are listed below: THE FOLLOWING MEDICATIONS NEED TO BE RECONCILED: ASA 81 mg, daily [id number] Oral Boniva Oral Calcium Ascorbate Oral Co Q-10 Oral Colostyrime Glimepiride Oral Hydrochlorothiazide Oral insulin Levomir 24 units BID Lisinopril Oral MetFORMIN HCl Oral Metoprolol 50 mg, 2x a day Omeprazole Oral Simvastatin Oral The source(s) of the original Home Medication information: Not obtained. The following Medications were given to the patient in the Emergency Department: Zofran [IVP] IVP 4 mg, administered: 06/25/2016 11:28:00 PM IV NS IV Fluids bolus 500 mL over 30 minute(s), then 125 mL/hr, administered: 06/26/2016 1:15:00 AM PHENERGAN [IVP] IVP 25 mg, administered: 06/26/2016 1:16:00 AM Aspirin [PO] PO 325 mg, administered: 06/26/2016 2:50:00 AM The following Medications were prescribed to the patient: None.
[2016-06-26 10:59] VITALS: BP 143/60
[2016-06-26 14:32] VITALS: BP 130/51
[2016-06-26] MEDS ORDERED: ASPIRIN ADULT L81 MG PO (16:40)
[2016-06-26] MEDS ORDERED: BONIVA150 MG (16:41)
[2016-06-26] MEDS ORDERED: VITAMIN B12100 MCG (16:41)
[2016-06-26] MEDS ORDERED: CALCIUM CARBON500 MG PO ×2 (16:42)
[2016-06-26] MEDS ORDERED: CO Q 10100 MG (16:42)
[2016-06-26] MEDS ORDERED: AMARYL1 MG PO (16:43)
[2016-06-26] MEDS ORDERED: CHOLESTYRAMINE4 GM ×2 (16:43)
[2016-06-26] MEDS ORDERED: LEVEMIR FL100 UNIT/M SC (16:44)
[2016-06-26] MEDS ORDERED: HYDROCHLOROTHIA25 MG PO (16:44)
[2016-06-26] MEDS ORDERED: LISINOPRIL10 MG PO (16:45)
[2016-06-26] MEDS ORDERED: GLUCOPHAGE500 MG PO (16:45)
[2016-06-26] MEDS ORDERED: OMEPRAZOLE20 M1 (16:46)
[2016-06-26] MEDS ORDERED: SIMVASTATIN20 MG (16:46)
[2016-06-26] MEDS ORDERED: LOPRESSOR50 MG PO (16:46)
--- NOTE | 2016-06-26 17:34 | NUR ---
I discussed with the patient their current medications, possible side effects, and answered questions.
[2016-06-26 18:49] VITALS: BP 105/49
--- NOTE | 2016-06-26 19:55 | NUR ---
PT RESTING IN BED, AT BEDSIDE. NO DISTRESS NOTED. PT COOPERATIVE WITH CARE. VSS. PATIENT AND ASKED IF DR. ABAD WILL BE COMING BY THIS EVENING, TO DISCUSS MEDICATIONS, AND REGARDING STRESS TEST. PT ALSO REQUESTED FOR TUMS. DR. ABAD NOTIFIED AT 1945, AND DR. ABAD STATED THAT HE WOULD COME AND SEE PATIENT TONIGHT AND ANSWER PATIENT QUESTIONS. PT DENIES ANY CHEST PAIN, SOB, NAUSEA, AND VOMITNIG. BED IN LOWEST POSITION, CALL LIGHT IN REACH ,TM.
[2016-06-26 22:43] VITALS: BP 116/68
--- NOTE | 2016-06-26 23:56 | NUR ---
Pt. is resting in bed at this time. Pt. is alert, oriented and cooperative. Answers all orientation questions appropriately. Denies chest pain/discomfort. Denies nausea. Per pt., tolerating food well. Pt. is on continuous telemtry monitoring. Assessment completed. Call light within reach. WCTM.
[2016-06-27 02:27] VITALS: BP 102/54
--- NOTE | 2016-06-27 07:26 | Discharge Summary ---
Discharge Summary Report Admit Date 06/26/16 Discharge Date 06/27/16 Admission Diagnosis 1. Chest pain rule out ACS 2. Nausea and vomiting Discharge Diagnosis 1. Chest pain-ACS ruled out 2. Gastroenteritis Brief History The patient is a 70-year-old white male with a significant past medical history of hypertension, gastroesophageal reflux, Crohn's disease, diabetes mellitus, atrial fibrillation, anemia, who presented to [facility] emergency department on the day of admission secondary to complaints of chest pain shoulder pain with associated nausea and vomiting. [facility] ER evaluation was consistent with chest pain rule out ACS. Secondary to the above, the patient was admitted by Meir Chew M.D. for further evaluation and treatment. For other history present illness, past medical history, family history, social history, review of systems, and admission physical examination please see the patient's history and physical examination and ER visit note in the patient's medical record. Hospital Course The following problems and their management were noted during the patient's hospitalization: 1. Chest pain-ACS ruled out The patient was admitted with findings of chest pain-rule out ACS. Troponins/ EKG were inconsistent with myocardial ischemia/infarction. Subsequent Lexiscan- Cardiolite stress test showed mild changes possibly suggestive of ischemia. The case was discussed with Dr. Ramirez who felt the patient was safe for discharge with outpatient follow-up with him. He was discharged with additional medications of Imdur were and sublingual nitroglycerin. He will continue on beta brenden and and aspirin therapy. He will follow-up with Dr. Ramirez next week. The patient has been advised to follow a sedentary lifestyle until seen by Dr. Ramirez 2. Gastroenteritis The patient presented with findings suggestive of gastroenteritis. These resolved prior to his discharge. He was taking well orally at the time of discharge without nausea, vomiting, or abdominal pain. General Appearance Alert, Oriented X3, Cooperative, No acute distress Lungs Clear to auscultation Cardiovascular Regular Rate, Normal S1, Normal S2 Abdomen Normal bowel sounds, Soft, No tenderness Neurological Grossly normal Psych/Mental Status Mental status NL, Mood NL Lab/Imaging Laboratory Tests 06/27 06/26 0535 0750 Chemistry Plasma Sodium (136 - 145 mmol/L) 139 Plasma Potassium (3.5 - 5.1 mmol/L) 3.8 Plasma Chloride (98 - 107 mmol/L) 101 CO2 (Enzymatic) (21 - 32 mmol/L) 27 BUN (7 - 18 mg/dL) 27 Creatinine (0.6 - 1.3 mg/dL) 1.3 Est GFR ( Amer) (mL/min) >60 Est GFR (Non-Af Amer) (mL/min) 58.00 Glucose (70 - 110 mg/dL) 140 Plasma Calcium (8.5 - 10.1 mg/dL) 7.5 Total Bilirubin (0.0 - 1.0 mg/dL) 0.7 AST (15 - 37 U/L) 25 ALT (12 - 78 U/L) 28 Alkaline Phosphatase (46 - 116 U/L) 67 Troponin (0.00 - 1.5 ng/mL) <0.05 Total Protein (6.4 - 8.2 g/dL) 5.3 Albumin (3.3 - 5.0 g/dL) 2.6 Hematology WBC (4.5 - 11.5 K/uL) 5.2 RBC (4.50 - 5.90 M/uL) 3.27 Hgb (13.5 - 17.5 gm/dL) 9.6 Hct (41.0 - 53.0 %) 29.1 MCV (80 - 100 fL) 89 MCH (26 - 34 pg) 29 RDW (11.6 - 14.8 %) 13.6 Neut % (Auto) (50 - 75 %) 89.2 Lymph % (Auto) (25 - 40 %) 5.8 Dooly % (Auto) (3 - 14 %) 4.8 Eos % (Auto) (0 - 4 %) 0.2 Baso % (Auto) (0 - 2 %) 0 Plt Count, EDTA (150 - 400 K/uL) 89 PUBS MCHC (31 - 37 g/dL) 33 Discharge Instructions/Meds For other recommendations regarding discharge diet, activity, followup, and discharge medications please see the patient's discharge instructions. Discharge condition: Fair, improved Greater than 30 min. was spent in the patient's discharge preparation including discharge interview and physical examination, progress note, discharge instructions, and discharge summary The patient was interviewed and examined on the day of discharge. E&M Codes Discharge: Observation - All/[id number]
[2016-06-27 07:39] VITALS: BP 105/69
[2016-06-27 11:18] VITALS: BP 114/61
[2016-06-27 11:28] VITALS: BP 122/71
--- NOTE | 2016-06-27 11:57 | DIAGNOSTIC IMAGING REPORT ---
REFERRING PHYSICIAN/PROVIDER: Godwin Swartz MD ATTENDING PHYSICIAN/PROVIDER: Godwin Swartz MD CONSULTING METAL WORK DUCT INSTALLER: Mike Ramirez MD PROCEDURE PERFORMED: Nuclear stress test INDICATION: CP RADIOPHARMACEUTICAL: The patient received 33.0 millicuries of technetium 99 sestamibi on day one which was stress. On day two the patient received 30.0 millicuries of technetium 99 sestamibi during rest. This is a 2-day stress protocol. CARDIAC STRESS: The patient was stressed according to the Lexiscan Cardiolite protocol. The resting heart rate was 70 beats per minute. The heart rate of test was 77 beats per minute. The patient's baseline blood pressure was 146/50 mmHg. At test's end the blood pressure was 141/52 mm mercury. The resting EKG was normal. There are no significant arrhythmias noted. The patient denied any chest pain. No significant ST changes. Overall this is considered to be a nondiagnostic pharmacological stress EKG. RAW DATA: There is appropriate radiotracer uptake of the LV myocardium. Motion correction software was applied. QUANTITATIVE GATED SPECT: There is evidence of normal LV wall motion. The left ventricular end-diastolic volume during resting was 150 ml. The ejection during stress was 63%. MYOCARDIAL PERFUSION STUDY: The there is a small to moderate size distal anterolateral wall perfusion defect involving part of the apex which is only noted on the supine stress images. On the supine resting images the perfusion defect improves. However cannot exclude that the perfusion defect could be a normal variant such as apical thinning. IMPRESSION: 1. Probable abnormal myocardial perfusion study. Cannot exclude an artifact. It is a possibility that the perfusion defect along the distal anterolateral and apical wall is a normal variant such as apical thinning. Otherwise there appears to be at least mild to moderate ischemia along the distal anterolateral wall and part of the apex. If the patient has history concerning for angina then consider coronary angiogram to further delineate the patient's coronary anatomy. 2. Normal LV ejection fraction with normal LV wall motion. 3. Nondiagnostic pharmacological stress EKG. Stress EKG was interpreted on a different report.
[2016-06-27] MEDS ORDERED: CELEBREX200 MG PO (14:05)
--- NOTE | 2016-06-27 14:16 | Provider's Discharge Care Plan ---
Problem, Goal, Plan Problem List 1. Chest pain Goals: Improve disease control, Prevent disease progress Instructions: Follow up as directed, Take meds as directed, Follow up with Dr. Ramirez
[2016-06-27] MEDS ORDERED: NITROSTAT0.4 MG SL (14:25)
[2016-06-27] MEDS ORDERED: ISOSORBIDE MONO30 MG PO (14:25)
--- NOTE | 2016-06-27 15:51 | NUR ---
PATIENT LEFT FOR HOME AT 1530, GIVEN SIGNED RX, HOME MEDICATIONS AND DC INSTRUCTIONS. PATIENT STATES THAT HE HAS NO FURTHER QUESTIONS REGARDING HIS DC INSTRUCTIONS AT THIS TIME. DENIES CP, SOB, AND VSS, ESCORTED OUT BY FAMILY PROGRAM SPECIALIST, LEFT WITH IN PRIVATE CAR.
== END 2016-06-27 15:30 | disposition home or self-care (01) ==
LOC: ED SRH 22:49 → ACUTE2 SRH 06-26 02:45 → TRANS SRH 06-26 02:45 → ACUTE2 SRH 06-26 04:43
PROVIDERS: ADMIT Emergency Medicine
DX: R07.9 Chest pain, unspecified (principal); R41.0 Disorientation, unspecified; K52.9 Noninfective gastroenteritis and colitis, unspecified; D61.818 Other pancytopenia; E11.9 Type 2 diabetes mellitus without complications; Z79.84 Long term (current) use of oral hypoglycemic drugs; I10 Essential (primary) hypertension; I48.91 Unspecified atrial fibrillation; K50.90 Crohn's disease, unspecified, without complications; Z79.1 Long term (current) use of non-steroidal anti-inflammatories (NSAID)
CPT/HCPCS: 29230; 29242; 29251; 29264; 85241; 90004; 90074; 90098; 90100; 90616; 91320; 92235; 92530; 92610; 95059